=== PATIENT | male | born 1945 | race Caucasian/White ===

== ENCOUNTER → 2016-07-07 | Outpatient (CLI) | payer MEDICARE | LOC: GMAL 10:58 | PROVIDERS: ATTEND Family Medicine | DX: Z12.5 Encounter for screening for malignant neoplasm of prostate (principal) ==

== ENCOUNTER → 2017-01-27 | Outpatient (CLI) | payer MEDICARE | END | disposition home or self-care (01) | LOC: GMAL 11:00 | PROVIDERS: ATTEND Family Medicine | DX: D51.3 Other dietary vitamin B12 deficiency anemia (principal); E11.9 Type 2 diabetes mellitus without complications ==

== ENCOUNTER → 2017-08-04 | Outpatient (CLI) | payer MEDICARE | LOC: GMAL 11:09 | PROVIDERS: ATTEND Family Medicine | DX: Z12.5 Encounter for screening for malignant neoplasm of prostate (principal) ==

== ENCOUNTER → 2018-02-03 | Outpatient (CLI) | payer MEDICARE | LOC: GMAL 10:07 | PROVIDERS: ATTEND Family Medicine | DX: D51.3 Other dietary vitamin B12 deficiency anemia (principal); R53.81 Other malaise; E55.9 Vitamin D deficiency, unspecified ==

== ENCOUNTER → 2018-11-01 | Outpatient (CLI) | payer MEDICARE | LOC: GMAL 13:03 | PROVIDERS: ATTEND Family Medicine | DX: Z12.5 Encounter for screening for malignant neoplasm of prostate (principal); E55.9 Vitamin D deficiency, unspecified | CPT/HCPCS: 82306; G0103 ==

== ENCOUNTER → 2018-11-17 | Outpatient (CLI) | payer MEDICARE ==
--- NOTE | 2018-11-18 08:15 | RAD ---
EXAM DESCRIPTION: Hand,Left 3 Views CLINICAL HISTORY: 73 years Male, M79.641, M79.642 COMPARISON: None. FINDINGS: Three views of the left hand show no acute fracture or malalignment. Joint space narrowing and osteophyte formation involving several interphalangeal joints. No radiopaque foreign body or soft tissue gas. IMPRESSION: Mild to moderate polyarticular degenerative changes without acute left hand abnormality. Electronically signed by: Raymundo Foster MD 11/18/2018 8:13 AM CDT
--- NOTE | 2018-11-18 08:16 | RAD ---
EXAM DESCRIPTION: Hand,Right 3 Views CLINICAL HISTORY: 73 years Male, M79.641, M79.642 COMPARISON: None. FINDINGS: Three views of the right hand show no acute fracture or malalignment. Joint space narrowing and osteophyte formation about several interphalangeal joints. There are two tiny radiopaque foreign bodies in the soft tissues adjacent to the distal phalanx of the right index finger, likely not acute. Vascular calcifications. IMPRESSION: Mild to moderate polyarticular degenerative changes without acute right hand abnormality. Electronically signed by: Raymundo Foster MD 11/18/2018 8:14 AM CDT
== END ==
LOC: RAD 08:33
PROVIDERS: ATTEND Orthopaedic Surgery
DX: Z01.818 Encounter for other preprocedural examination (principal); M19.041 Primary osteoarthritis, right hand; M19.042 Primary osteoarthritis, left hand

== ENCOUNTER 2018-12-09 01:00 | Day surgery (SDC) | payer MEDICARE ==
--- NOTE | 2018-12-08 09:39 | HP ---
CHIEF COMPLAINT: Left hand pain and numbness. HISTORY OF PRESENT ILLNESS: Mr. Adames is a 73-year-old male with a history of pain and numbness in the left hand. He has been having this going on for quite some time and has actually had similar symptoms on the right. He denies any trauma, radiation of pain or neurologic symptoms on the ulnar border of the hand. We have talked about options and he has elected to undergo carpal tunnel release. After discussing the risks, benefits and alternatives to that, he has given informed consent. PAST SURGICAL HISTORY: 1. Lumbar surgery. MEDICATIONS: 1. Metformin. 2. Aspirin. ALLERGIES: NO KNOWN DRUG ALLERGIES CODE STATUS: Full code. IMMUNIZATIONS: Up to date. FAMILY HISTORY: None pertinent to today's complaint. SOCIAL HISTORY: The patient does not smoke or use any illicit drugs. REVIEW OF SYSTEMS: Negative except as indicated in the History of Present Illness. PHYSICAL EXAMINATION: VITAL SIGNS: Blood pressure 176/98. Pulse 67. Height 5'10". Weight 175 pounds. MENTAL STATUS: The patient is awake, alert, and is able to give a good history and participate in the physical. The patient is oriented to person, place and time. SKIN: Normal tone and turgor. HEENT: Normocephalic, atraumatic. Pupils equal, round and reactive. Mucosal membranes are moist. NECK: Normal range of motion. No thyromegaly, no lymphadenopathy. CHEST: Normal respiratory excursion. CARDIAC: Regular rate and rhythm. No murmurs, rubs or gallops. MUSCULOSKELETAL: The bilateral lower extremities show full active range of motion. He has intact sensation. They are warm and well perfused with no deformity or crepitus. Strength is 5/5. The right upper extremity shows full range of motion of the shoulder, elbow, wrist and digits. Strength is 5/5. He has positive carpal compression test. He does not have any significant thenar atrophy. The left upper extremity shows full range of motion of the shoulder, elbow, wrist and digits. He has intact strength. He has no deformity and no malalignment. He has positive carpal compression test. ASSESSMENT: 1. Carpal tunnel syndrome. PLAN: The plan at this point is for carpal tunnel release. We have discussed the risks, benefits, and alternatives to that and the patient has given informed consent. [facility][id number] [facility]
[2018-12-09] MEDS ORDERED: SODIUM CHL 0.9% 100ML MINI-BAG 100 ML IVPB ONE (06:28)
[2018-12-09] MEDS ORDERED: ceFAZolin SODIUM 1 GM VIAL ONE ×2 (06:28→09:19)
[2018-12-09] MEDS ORDERED: LACTATED RINGERS 1,000 ML ONE (06:28)
[2018-12-09] MEDS ORDERED: PROPOFOL 200 MG/20 ML VIAL IV ONE (07:00)
[2018-12-09] MEDS ORDERED: LIDOCAINE 1% 10 ML VIAL INJ ONE (07:00)
[2018-12-09 08:12] VITALS: O2SAT 98
[2018-12-09] MEDS ORDERED: LIDOCAINE 1% 50 ML VIAL INJ ONE (09:19)
[2018-12-09] MEDS ORDERED: BUPIVACAINE 0.25% INJ 30 ML VIAL INJ ONE (09:19)
[2018-12-09] MEDS ORDERED: VANCOMYCIN HCL INJ 1,000 MG VIAL IVPB ONE (09:19)
[2018-12-09 11:10] VITALS: BP 141/69; TEMP 97.4
--- NOTE | 2019-01-03 13:28 | OP ---
DATE OF PROCEDURE: 12/09/18 PREOPERATIVE DIAGNOSIS: 1. Left carpal tunnel syndrome. POSTOPERATIVE DIAGNOSIS: 1. Left carpal tunnel syndrome. PROCEDURE: 1. Carpal tunnel release. SURGEON: Dino García MD. DENT REMOVER: Inderjit Nathan CST, SA-C. ANESTHESIA: Local with sedation. COMPLICATIONS: None. FINDINGS: Thickening of the transverse carpal ligament and narrowing of the median nerve across the carpal tunnel. INDICATION: Mr. Adames has a history of numbness in the distribution of the median nerve. Mr. Adames and I have talked about options for treatment of this and because of the failure of conservative measures, the patient has requested operative intervention. After discussing the risks, benefits and alternatives to that, the patient has given informed consent for carpal tunnel release. PROCEDURE: The patient was brought to the Operating Room and placed in the supine position. Sedation was administered and local anesthetic was injected into the operative area under sterile conditions. After the injection of anesthetic, the arm was sterilely prepped and draped. A longitudinal incision was made directly overlying the transverse carpal ligament and blunt dissection was carried down to the ligament. The transverse carpal ligament was sharply transected along its length and a [place] elevator was used to ensure complete release of the ligament. Once release had been confirmed, the wound was thoroughly irrigated and the wound was closed with Nylon suture. A sterile dressing was placed and the patient was taken to the Day Surgery Unit. POSTOPERATIVE PLAN: The patient has been encouraged to do range of motion of the digits and will followup with us in approximately two days. #[id number] [facility]
== END 2018-12-09 11:04 | disposition home or self-care (01) ==
LOC: AMB 01:00
PROVIDERS: ATTEND Orthopaedic Surgery
DX: G56.02 Carpal tunnel syndrome, left upper limb (principal); E11.9 Type 2 diabetes mellitus without complications; Z79.84 Long term (current) use of oral hypoglycemic drugs; Z79.82 Long term (current) use of aspirin
CPT/HCPCS: 01810; 36416; 64721; 80307; 82948; J0690; J3370; J3490; J7050; J7120

== ENCOUNTER → 2019-01-02 | Outpatient (CLI) | payer MEDICARE | LOC: LAB.O 10:54 | PROVIDERS: ATTEND Orthopaedic Surgery | DX: Z01.818 Encounter for other preprocedural examination (principal) ==

== ENCOUNTER → 2019-02-10 | Outpatient (CLI) | payer MEDICARE ==
--- NOTE | 2019-02-10 15:08 | MRI ---
EXAM DESCRIPTION: Cervical Spine: MRI. CLINICAL HISTORY: 73 years Male CERVICAL DISC DISORDER AT C5-C6 LEVEL WITH RADICULOPATHY COMPARISON: None. TECHNIQUE: Multiplanar, high-field MRI, multiple sequences, non-contrast Cervical spine. FINDINGS: C3-C4: Disc desiccation and minimal disc space loss. Posterior midline 3 mm bulge abutting the cord. Bilateral uncinate spurs larger on the right. Mild bilateral foraminal narrowing more on the right. Mild canal narrowing. C4-C5: Disc desiccation and minimal disc space loss. Posterior left protrusion of the disc 4 mm abutting the cord in the left C5 nerve. Bilateral facets are negative. Mild left neural foraminal stenosis. C5-C6: Disc desiccation and minimal disc space loss. Posterior midline and right paracentral disc osteophyte complex protrusion impressing on the ventral cord and the exiting right 6th nerve. Mild to moderate central canal stenosis. Right neural foraminal stenosis. Moderate left neural foraminal narrowing. Bilateral facets unremarkable. Posterior ligament thickening. C6-C7: Disc desiccation with disc space preserved. Posterior midline bulge abutting the cord. Mild posterior ligament thickening. Mild to moderate canal narrowing. Bilateral uncinate spurs. Moderate right neural foraminal narrowing and mild left neural foraminal stenosis. Minimal left facet arthrosis. C7-T1: Disc desiccation and minimal posterior midline bulge. Minimal arthrosis right facet. Mild canal narrowing. Mild bilateral neural foraminal narrowing. T1-T2: Disc desiccation and minimal disc space loss. Bilateral uncinate spurs and bilateral mild neural foraminal narrowing. Mild canal narrowing. Facets are negative. Normal signal in the C2-C3 disc with no bulging. Disc spaces preserved. Canal and neural foramina are patent. Facet joints are unremarkable Spinal alignment negative.. No cord compression or cord edema. Atlantoaxial joint minimal arthrosis.. Base of the cerebellar tonsils is above the foramen magnum. Paravertebral soft tissues negative.. Vertebral bodies are not compressed at any level. Normal marrow signal in the remaining vertebral bodies and the posterior elements. IMPRESSION: 1. Multiple levels of disc desiccation and bulging. Also uncinate hypertrophy and canal and foraminal narrowing. 2. Midline bulge of the C3-4 disc. Canal and bilateral neural foraminal narrowing. 3. Left side protrusion posteriorly C4-C5 disc abutting the cord and the left C5 nerve. Mild left neural foraminal stenosis. 4. Posterior midline and right paracentral C5-C6 disc osteophyte protrusion impinging the right C6 nerve in the right ventral cord with mild to moderate canal and neural foraminal stenosis. 5. C6-C7 with uncinate hypertrophy on the left and minimal left facet arthrosis with left neural foraminal stenosis. Correlate for left C7 radiculopathy. Electronically signed by: Inderjit Ortiz MD 02/10/2019 3:07 PM CDT
== END ==
LOC: MRI 10:49
PROVIDERS: ATTEND Family Medicine
DX: M50.122 Cervical disc disorder at C5-C6 level with radiculopathy (principal)

== ENCOUNTER → 2019-11-07 | Outpatient (CLI) | payer MEDICARE | LOC: GMAL 10:57 | PROVIDERS: ATTEND Family Medicine | DX: D51.3 Other dietary vitamin B12 deficiency anemia (principal); R53.81 Other malaise; E55.9 Vitamin D deficiency, unspecified; I10 Essential (primary) hypertension; E11.9 Type 2 diabetes mellitus without complications; Z79.899 Other long term (current) drug therapy ==

== ENCOUNTER → 2020-05-13 | Outpatient (CLI) | payer MEDICARE | LOC: GMAL 10:50 | PROVIDERS: ATTEND Family Medicine | DX: Z12.5 Encounter for screening for malignant neoplasm of prostate (principal); I10 Essential (primary) hypertension; R53.81 Other malaise; E78.2 Mixed hyperlipidemia; E11.9 Type 2 diabetes mellitus without complications | CPT/HCPCS: 84443; G0103 ==